=== PATIENT | male | born 1995 | race Caucasian/White ===

== ENCOUNTER → 2022-08-04 | Outpatient (CLI) | payer SELFPAY ==
[~2022-08-04] MED LIST: CODACEE120 PO; CRUTCH2 USE; FEXO60 PO; RXHYDACE PO
== END ==
LOC: PLD 13:04 → LAB SHORT 13:04
DX: D48.5 Neoplasm of uncertain behavior of skin (principal); L72.9 Follicular cyst of the skin and subcutaneous tissue, unspecified
CPT/HCPCS: 88304